=== PATIENT | male | born 1970 | race Hispanic/Latino ===

== ENCOUNTER 2016-09-14 20:36 | Emergency (ER) | payer BC, OTHER ==
[2016-09-14 20:54] VITALS: BP 122/80; PULSE 92; RESP 16; TEMP 98.3; O2SAT 98
[2016-09-14] MEDS ORDERED: TDAP Vaccine 0.5 mL Syr IM ONE (21:19)
[2016-09-14] MEDS ORDERED: Lidocaine 1% Inj (20ml) ONE (21:29)
--- NOTE | 2016-09-14 21:40 | ED PDOC ---
HPI: Skin/Bite Injury Time Seen by Provider: 09/14/16 20:42 Chief Complaint (Nursing): Abnormal Skin Integrity Chief Complaint (Provider): Abnormal Skin Integrity History Per: Patient History/Exam Limitations: no limitations Onset/Duration Of Symptoms: Mins Current Symptoms Are (Timing): Still Present Additional Complaint(s): 46 y/o male presents to the emergency department with a complaint of a laceration to the left hand prior to arrival. Patient states he was trying to take down a memorial banner by cutting off the zip ties with a knife. Denies any further medical complaints. PMD: Dr. Charbel Rocha MD Past Medical History Reviewed: Historical Data, Nursing Documentation, Vital Signs Vital Signs: Last Vital Signs Temp 98.3 F 09/14/16 20:51 Pulse 92 H 09/14/16 20:51 Resp 16 09/14/16 20:51 BP 122/80 09/14/16 20:51 Pulse Ox 98 09/14/16 21:50 - Medical History PMH: No Chronic Diseases - Surgical History Surgical History: No Surg Hx - Family History Family History: States: Unknown Family Hx - Home Medications Home Medications: Ambulatory Orders Medication Instructions Recorded Ibuprofen 600 mg PO Q6H PRN #15 tab 11/15/14 Cephalexin [cephalexin] 500 mg PO BID #14 cap 09/14/16 - Allergies Allergies/Adverse Reactions: Allergies Allergy/AdvReac Type Severity Reaction Status Date / Time erythromycin base AdvReac VOMITING Verified 09/14/16 20:55 Review of Systems ROS Statement: Except As Marked, All Systems Reviewed And Found Negative Skin: Positive for: Other (Laceration of the left hand ) Physical Exam - Reviewed Nursing Documentation Reviewed: Yes Vital Signs Reviewed: Yes - Physical Exam Appears: Positive for: Well, Non-toxic, No Acute Distress Head Exam: Positive for: ATRAUMATIC, NORMAL INSPECTION, NORMOCEPHALIC Skin: Positive for: Normal Color, Warm, Dry Extremity: Positive for: Normal ROM, Other (1cm laceration to the left posterior hand in between the thumb and index finger. ). Negative for: Tenderness Neurologic/Psych: Positive for: Alert, Oriented - ECG O2 Sat by Pulse Oximetry: 98 (RA) Pulse Ox Interpretation: Normal Medical Decision Making Medical Decision Making: Time: 20:42 Initial Impression: Laceration Initial Plan: --TDAP Vaccine 0.5 mg IM --Suture Repair Scribe Attestation: Documented by Fe Elizalde, acting as a scribe for Itzel Barry PA-C. Provider Scribe Attestation: All medical record entries made by the Scribe were at my direction and personally dictated by me. I have reviewed the chart and agree that the record accurately reflects my personal performance of the history, physical exam, medical decision making, and the department course for this patient. I have also personally directed, reviewed, and agree with the discharge instructions and disposition. Disposition - Clinical Impression Clinical Impression: Laceration of hand, left, Tetanus toxoid vaccination administered at current visit - Patient ED Disposition Is Patient to be Admitted: No Counseled Patient/Family Regarding: Diagnosis, Need For Followup, Rx Given - Disposition Referrals: [facility] [Outside] [facility] [Outside] Disposition: Routine/Home Disposition Time: 22:00 Condition: GOOD Additional Instructions: Do not get wet for 24 hours. Keep clean and dry with antibiotic ointment twice a day. Suture removal in 8-10 days. Return sooner for signs of infection including increased pain, redness or drainage. Prescriptions: Cephalexin [cephalexin] 500 mg PO BID #14 cap Instructions: Care For Your Stitches (ED) Procedure: Wound Repair - Time Performed Time Performed: 21:45 - Procedure Procedure: Wound Repair: Laceration suture - Performed by Performed by: Mid-level Provider - Indications Indication(s):: Laceration - Location Location:: Posterior, Hand Finger:: Thumb, Index, Middle Shape:: Linear Dimensions Length cm: 1 - Wound repair method Sutures:: # (3 with a 4.0) - Patient tolerated procedure Patient Tolerated Procedure:: Well
== END 2016-09-14 22:21 | disposition home or self-care (01) ==
LOC: H.ER 20:36
DX: S61.412A Laceration without foreign body of left hand, initial encounter (principal); W26.0XXA Contact with knife, initial encounter; Y92.89 Other specified places as the place of occurrence of the external cause

== ENCOUNTER 2016-09-21 09:11 | Emergency (ER) | payer BC ==
[2016-09-21 10:05] VITALS: BP 140/80; PULSE 63; RESP 18; TEMP 98; O2SAT 100
[2016-09-21 10:06] VITALS: BMI 33.5
--- NOTE | 2016-09-21 10:43 | ED PDOC ---
HPI: Wound Care - HPI Time Seen by Provider: 09/21/16 10:19 Chief Complaint (Nursing): Suture/Staple Removal Chief Complaint (Provider): suture removal History Per: Patient Additional Complaint(s): pt returns to ED for suture removal for laceration repaired here 7 days ago. no c/o at this time. Past Medical History Reviewed: Historical Data, Nursing Documentation, Vital Signs Vital Signs: Last Vital Signs Temp 98.0 F 09/21/16 10:05 Pulse 63 09/21/16 10:05 Resp 18 09/21/16 10:05 BP 140/80 09/21/16 10:05 Pulse Ox 100 09/21/16 10:05 - Medical History PMH: No Chronic Diseases - Family History Family History: States: No Known Family Hx - Social History Current smoker - smoking cessation education provided: No Alcohol: None Drugs: Denies - Immunization History Hx Tetanus Toxoid Vaccination: No - Home Medications Home Medications: Ambulatory Orders Medication Instructions Recorded Ibuprofen 600 mg PO Q6H PRN #15 tab 11/15/14 Cephalexin [cephalexin] 500 mg PO BID #14 cap 09/14/16 - Allergies Allergies/Adverse Reactions: Allergies Allergy/AdvReac Type Severity Reaction Status Date / Time erythromycin base AdvReac VOMITING Verified 09/21/16 10:07 Review of Systems ROS Statement: Except As Marked, All Systems Reviewed And Found Negative Skin: Positive for: Lesions Physical Exam - Reviewed Nursing Documentation Reviewed: Yes Vital Signs Reviewed: Yes - Physical Exam Appears: Positive for: Well, Non-toxic, No Acute Distress Skin: Positive for: Normal Color, Warm, DRY Extremity: Positive for: Other (L hand sutures to 1-2 web space. CDI. ) Neurologic/Psych: Positive for: Alert, Oriented. Negative for: Motor/Sensory Deficits - ECG O2 Sat by Pulse Oximetry: 100 Medical Decision Making Medical Decision Making: sutures removed w/o incident. steri strips applied. pt tolerated well. no complications. Disposition - Clinical Impression Clinical Impression: Removal of suture - Patient ED Disposition Is Patient to be Admitted: No - Disposition Referrals: [facility] [Outside] Disposition: Routine/Home Disposition Time: 10:46 Condition: GOOD Instructions: Stitches Removal (ED)
== END 2016-09-21 10:54 | disposition home or self-care (01) ==
LOC: H.ER 09:11
DX: Z48.02 Encounter for removal of sutures (principal)